=== PATIENT | female | born 1960 | race Caucasian/White ===

== ENCOUNTER 2018-08-30 22:01 | Emergency (ER) | payer BC ==
[2018-08-30 23:17] LABS: Hematocrit 36.4 % (36.0-45.0); MCH 27.4 pg (27.0-35.0); MCV 83.6 fL (80-100); MPV 8.5 fL (7.6-11.3); RBC Red Blood Cell Count 4.36 M/uL (3.86-4.86)
[2018-08-30] MEDS ORDERED: MORPHINE 4 MG/ML SYR ONE (23:20)
[2018-08-30] MEDS ORDERED: ONDANSETRON 4 MG/2 ML VIAL ONE (23:20)
[2018-08-30 23:36] LABS: Bilirubin Total 0.3 mg/dL (0.2-1.0); Potassium 3.5 mmol/L (3.5-5.1); Protein, Total 7.3 g/dL (6.4-8.2)
[2018-08-31] MEDS ORDERED: MORPHINE 4 MG/ML SYR ONE (00:39)
[2018-08-31] MEDS ORDERED: KETOROLAC 30 MG/ML INJ ONE (02:03)
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
--- NOTE | 2018-08-31 08:55 | RAD REPORT ---
EXAM DESCRIPTION: [place] Single View08/30/2018 11:10 pm CLINICAL HISTORY: Chest pain COMPARISON: none FINDINGS: The lungs appear clear of acute infiltrate. The heart is normal size Mildly displaced fracture involves the medial left clavicle
== END 2018-08-31 02:32 | disposition home or self-care (01) ==
LOC: ER 22:01
DX: S42.002A Fracture of unspecified part of left clavicle, initial encounter for closed fracture (principal); S10.93XA Contusion of unspecified part of neck, initial encounter; X58.XXXA Exposure to other specified factors, initial encounter; Y93.89 Activity, other specified; Y92.814 Boat as the place of occurrence of the external cause; Z88.0 Allergy status to penicillin; I10 Essential (primary) hypertension; K21.9 Gastro-esophageal reflux disease without esophagitis
CPT/HCPCS: 36415; 70450; 70498; 71045; 71250; 72125; 80053; 85027; 96374; 96375; 99285; J2405; Q9967